=== PATIENT | female | born 1980 | race Caucasian/White ===

== ENCOUNTER → 2017-07-22 | Outpatient (CLI) | payer OTHER ==
[~2017-07-22] MED LIST: CARDIZEM CD 12120 MG PO; MOTRIN 200200 MG/TAB PO; NORCO 325 MG-51 TAB PO
== END ==
LOC: COL.VAS 12:02
DX: M79.89 Other specified soft tissue disorders (principal)

== ENCOUNTER → 2018-03-01 | Outpatient (CLI) | payer OTHER | LOC: COL.RAD 13:30 | DX: M25.561 Pain in right knee (principal) | CPT/HCPCS: J3301; Q9967 ==

== ENCOUNTER → 2019-04-29 | Outpatient (CLI) | payer OTHER | LOC: MC.RAD 14:45 | DX: Z12.31 Encounter for screening mammogram for malignant neoplasm of breast (principal) ==

== ENCOUNTER → 2019-05-03 | Outpatient (CLI) | payer OTHER | LOC: MHCPAIN 08:25 | DX: M54.5 Low back pain (principal); M53.3 Sacrococcygeal disorders, not elsewhere classified; M54.16 Radiculopathy, lumbar region | CPT/HCPCS: G0463 ==

== ENCOUNTER → 2021-05-01 | Outpatient (CLI) | payer OTHER | LOC: COL.RAD 07:42 | DX: K58.2 Mixed irritable bowel syndrome (principal); K21.00 Gastro-esophageal reflux disease with esophagitis, without bleeding | CPT/HCPCS: A9541 ==